=== PATIENT | male | born 1975 | race Caucasian/White ===

== ENCOUNTER 2021-05-22 13:24 | Emergency (ER) | payer OTHER, SELFPAY | END 2021-05-22 14:15 | disposition home or self-care (01) | LOC: ERS 13:24 | DX: S71.111A Laceration without foreign body, right thigh, initial encounter (principal); F17.210 Nicotine dependence, cigarettes, uncomplicated; W20.8XXA Other cause of strike by thrown, projected or falling object, initial encounter | CPT/HCPCS: 12002 ==

== ENCOUNTER 2021-11-25 19:06 | Emergency (ER) | payer OTHER, SELFPAY | END 2021-11-25 19:25 | disposition home or self-care (01) | LOC: ERS 19:06 | DX: J01.10 Acute frontal sinusitis, unspecified (principal); J01.00 Acute maxillary sinusitis, unspecified; F17.210 Nicotine dependence, cigarettes, uncomplicated | CPT/HCPCS: 99283 ==

== ENCOUNTER 2022-10-17 13:12 | Emergency (ER) | payer SELFPAY | END 2022-10-17 13:54 | disposition home or self-care (01) | LOC: ERS 13:12 | DX: K04.7 Periapical abscess without sinus (principal); F17.210 Nicotine dependence, cigarettes, uncomplicated | CPT/HCPCS: 99282 ==